=== PATIENT | male | born 1960 | race Caucasian/White ===

== ENCOUNTER 2024-04-28 13:17 | Emergency (ER) | payer SELFPAY ==
[2024-04-28 13:22] VITALS: BP 135/90
[2024-04-28 13:39] LABS: % Basophils 0.2 % (0-2); % Eosinophils 0.3 % (0-6); % Immature Granulocytes 0.6 % (0-0.5); % Lymphocytes 16.1 % (20.5-51.1); % Neutrophils 70.8 % (42.2-75.2); Absolute Lymphocytes 1.1 10^3/uL (1.2-3.4); Absolute Monocytes 0.8 10^3/uL (0.1-0.6); Absolute Neutrophils 4.7 10^3/uL (1.4-6.5); Hematocrit 42.2 % (39.0-52.0); Hemoglobin 14.7 g/dL (13.0-18.0); Mean Corp Hgb Conc. 34.8 g/dL (33.0-37.0); Mean Corpuscular Hgb 29.3 pg (27.0-31.0); Mean Corpuscular Volume 84.1 fL (80.0-94.0); Mean Platelet Volume 8.8 fL (7.4-10.4); Nucleated Red Blood Cells % 0 % (-); Platelet Count 218 10^3/uL (130-400); Red Blood Cell Count 5.02 10^6/uL (4.70-6.10); Red Cell Dist. Width 13.7 % (11.5-14.5); White Blood Cell Count 6.6 10^3/uL (4.8-10.8)
[2024-04-28 13:56] LABS: ALT (SGPT) 31 U/L (0-50); AST (SGOT) 30 U/L (17-59); Albumin 4.5 g/dl (3.5-5.0); Alkaline Phosphatase 52 U/L (38-126); Blood Urea Nitrogen 13 mg/dl (9-20); Calcium 9.5 mg/dl (8.4-10.2); Carbon Dioxide 28 mmol/L (22-30); Chloride 102 mmol/L (98-107); Glucose 117 mg/dl (70-99); Lipase 380 U/L (23-300); Potassium 3.8 mmol/L (3.5-5.1); Sodium 140 mmol/L (135-145); Total Bilirubin 1.3 mg/dl (0.2-1.3); Total Protein 7.3 g/dl (6.3-8.2); eGFR > 60.00
[2024-04-28 17:40] VITALS: BP 144/83
[2024-04-28 21:00] VITALS: BMI 23.0
--- NOTE | 2024-04-28 21:07 | ED.GENMED ---
History of Present Illness
General
Chief Complaint: Abdominal Symptoms
Source: patient
Exam Limitations: none
Time Seen by Provider: 04/28/24 20:40
History of Present Illness
History of Present Illness:
63yoM with no known medical problems presenting for evaluation of decreased appetite. Patient started with URI symptoms on 04/05/2024 which lasted about 3 days. He has been having ongoing nasal congestion since then. About a week ago, he
developed decreased appetite. He is also having generalized abdominal fullness and intermittent nausea. Patient has lost about 14 pounds within the past week. He was seen at urgent care 2 days ago and was told to go to the ED with any persistent
symptoms. Patient had a fever of 101 about 10 days ago but has not had any fever since. He denies any dysuria, vomiting, chest pain, shortness of breath. No previous abdominal surgeries. Of note, patient has not seen a PCP since 2006.
Phy Exam
General Physical Exam
General Presentation: well appearing and no apparent distress
General age: appears stated age
General Skin: warm and dry
General Habitus: normal
General Mental: alert
ENT Exam
ENT Exam: normocephalic
Cardiovascular Exam
Cardiovascular Exam: regular rate/rhythm and no murmur
Pulmonary Exam
Pulmonary Exam: lungs clear, no respiratory distress, no rales, no crackles and no rhonchi
Gastrointestinal Exam
Gastrointestinal Exam: non tender, soft and non distended
Neurological Exam
Neurological Exam: alert
Maikol Coma Scale
Eye Opening: Spontaneous
Verbal Response: Oriented
Motor Response: Obeys Commands
GCS Total Score: 15
Skin Exam
Skin Exam: normal color and warm/dry
Psychiatric Exam
Psychiatric Exam: normal mood/affect
Course
Orders/Labs/Results
Orders:
Orders
04/28/24 13:30
Complete Blood Count/With Diff Urgent
Comprehensive Metabolic Panel Urgent
Lipase Urgent
TSH Urgent
Comment: ADD ON
04/28/24 21:06
CT Abd/pel W Iv And Oral Contr Urgent
Comment:
Reason For Exam: Abdominal fullness, weight loss, elevated lipase
Iohexol [Omnipaque] See Protocol PO NOW STA
04/28/24 21:08
Add On- LAB Urgent
Tests Added?: TSH
Abnormal Lab Results
04/28/24
13:30
Absolute Lymphs (auto) 1.1 L 10^3/uL
(1.2-3.4)
Absolute Monos (auto) 0.8 H 10^3/uL
(0.1-0.6)
Immature Gran % 0.6 H %
(0-0.5)
Lymphocytes % 16.1 L %
(20.5-51.1)
Monocytes % 12.0 H %
(1.7-9.3)
Glucose 117 H mg/dl
(70-99)
Lipase 380 H U/L
(23-300)
04/28/24 13:30
04/28/24 13:30
Vital Signs
Initial and Last Documented VS:
Initial Vital Signs
Temp Pulse Resp BP Pulse Ox
98.3 F 104 20 135/90 99
04/28/24 13:22 04/28/24 13:22 04/28/24 13:22 04/28/24 13:22 04/28/24 13:22
Last Documented Vital Signs
Temp Pulse Resp BP Pulse Ox
98.3 F 71 16 124/77 97
04/28/24 13:22 04/28/24 23:14 04/28/24 23:14 04/28/24 23:00 04/28/24 23:15
MDM/Problems Addressed
Differential Diagnosis Includes:
63yoM here with abdominal fullness, decreased appetite x 1 week. Recently sick with a URI last month. Lost 14 pounds within the past week. No known PMH. He is afebrile and hemodynamically stable. He is well-appearing in no acute distress.
Abdominal exam is benign. Differential diagnosis includes but is not limited to: Pancreatitis, PUD, malignancy, dehydration
Initial ED plan: Abdominal labs obtained in triage. Lipase mildly elevated at 380. Remainder of labs are unremarkable including normal white count, renal function, and LFTs. Will check TSH and CT abdomen.
*Critical Care Note
Total Time (30-74mins, 75-104mins- exclusive of procedures): Not Applicable
Update Note
Update Note:
TSH within normal limits. Preliminary radiology report for CT scan from [facility] is negative for acute abnormalities. Findings discussed with patient. Unclear etiology of symptoms. Patient has never had a colonoscopy before. He was referred to a
PCP and gastroenterology for follow-up. ED return precautions discussed. Patient expressed understanding and was discharged in stable condition.
ED Attending Note
-
Portions of this chart may have been created with voice recognition software.� Occasional wrong word or��sound alike� substitutions may have occurred due to the inherent limitations of voice recognition software.
Discharge Plan
Departure
Patient Disposition: Home (Routine Discharge)
Date of Disposition: 04/29/24
Time of Disposition: 00:21
Patient with high blood pressure during this ER visit?: No
Discharge Problem:
Abdominal fullness, Unintentional weight loss, Decrease in appetite
Instructions: Abdominal pain in adults - Discharge instructions
Referrals:
[facility] [Provider Group]
[facility] [Outside]
Valerie Vieira MD [Active] -
NONE,* [Family Provider] -
Activity Restrictions/Additional Instructions:
Please call tomorrow to schedule a follow-up with a family doctor and gastroenterology. Return to the ER with any new or worsening symptoms.
Interventions
Interventions:
*Risk Screen - Suicide Last Done: 04/28/24 21:19
*General Assessment Last Done: 04/28/24 21:19
*Neglect/Abuse Screening Last Done: 04/28/24 21:19
ED- Fall Risk Assessment Last Done: 04/28/24 23:14
*ED COVID-19 Vaccine History Last Done: 04/28/24 21:19
*Nursing Disposition Last Done: 04/29/24 00:31
BC-Pzbobw-Erhjktokpk Assessment Last Done: 04/28/24 21:25
Discharge Date and Time
Discharge Date/Time: 04/29/24 00:31
Print Language: BULGARIAN
[2024-04-28] MEDS: OMNIPAQUE 50 ML PO (21:17)
[2024-04-28 21:20] VITALS: BP 132/85
[2024-04-28 22:00] VITALS: BP 125/82
[2024-04-28 22:19] LABS: TSH 1.62 uIU/ml (0.47-4.68)
[2024-04-28 23:00] VITALS: BP 124/77
== END 2024-04-29 00:31 | disposition home or self-care (01) ==
LOC: EMR 13:17
PROVIDERS: Emergency Medicine; EMERGENCY PHYSICIAN Emergency Medicine
DX: R14.0 Abdominal distension (gaseous) (principal); R63.4 Abnormal weight loss; R63.0 Anorexia
CPT/HCPCS: 99285; 74177; 80053; 83690; 84443; 85025; Q9967